=== PATIENT | female | born 1975 | race Caucasian/White ===

== ENCOUNTER → 2016-08-26 | Outpatient (CLI) | payer OTHER | LOC: BRMIMAGING 10:56 | PROVIDERS: ATTEND Midwife | DX: R93.8 Abnormal findings on diagnostic imaging of other specified body structures (principal); N83.291 Other ovarian cyst, right side; N83.292 Other ovarian cyst, left side | CPT/HCPCS: 76856-PO ==

== ENCOUNTER → 2016-09-06 | Outpatient (CLI) | payer OTHER ==
[~2016-09-06] MED LIST: GADOBUTROL 10 ML VIAL IVP ONE
== END ==
LOC: FIMAGING 14:38
PROVIDERS: ATTEND Midwife
DX: N83.201 Unspecified ovarian cyst, right side (principal); N83.202 Unspecified ovarian cyst, left side; E22.9 Hyperfunction of pituitary gland, unspecified; J01.00 Acute maxillary sinusitis, unspecified
CPT/HCPCS: A9585